=== PATIENT | male | born 1955 | race African-American/Black ===

== ENCOUNTER 2022-09-06 13:32 | Outpatient (CLI) | payer MEDICARE | END 2022-09-06 13:33 | disposition home or self-care (01) | LOC: BICRAD 13:32 | PROVIDERS: ATTEND Physician Assistant Medical | DX: K31.89 Other diseases of stomach and duodenum (principal); R10.10 Upper abdominal pain, unspecified; K76.9 Liver disease, unspecified; R91.1 Solitary pulmonary nodule | CPT/HCPCS: 71046 ==

== ENCOUNTER 2022-10-30 08:48 | Outpatient (CLI) | payer MEDICARE ==
[2022-10-17 08:30] LABS: #Basophils 0.1 thou/uL (0.0-0.2); #Eosinphils 0.4 thou/uL (0.0-0.7); #Lymphocytes 3.4 thou/uL (1.20-3.40); #Neutrophils 5.2 thou/uL (1.40-6.50); %Basophils 0.5 % (0.0-1.0); %Eosinophils 4.1 % (0.0-10.0); %Monocytes 9.7 % (0.0-10.0); %Neutrophils 51.7 % (42.0-75.0); Hemoglobin 12.9 g/dL (14.0-18.0); Mean Corpuscular HGB CONC 32.4 g/dL (32.0-36.0); Mean Corpuscular Hemoglobin 30.2 pg (27.0-31.0); Mean Corpuscular Volume 93.4 fl (78.0-98.0); Mean Platelet Volume 8.6 fL (7.4-10.4); Platelet Count 201 10x3/uL (130-400); RBC Distribution Width 15.2 % (11.5-14.5); Red Blood Cell (RBC) Count 4.28 mill/uL (4.70-6.10); White Blood Cell (WBC) Count 10.1 10x3/uL (4.8-10.8)
[2022-10-17 08:54] LABS: Prothrombin Time 13.6 sec (12.0-14.7)
[2022-10-17 08:55] LABS: PTT 26.3 sec (22.9-36.1)
[2022-10-30] MEDS ORDERED: Iopamidol 370 76% 100 ML VIAL ONE (09:02)
[2022-10-30 10:29] VITALS: BP 125/77; TEMP 97.7
== END 2022-10-30 08:49 | disposition home or self-care (01) ==
LOC: CT 08:48
PROVIDERS: ATTEND Internal Medicine Gastroenterology
DX: R91.8 Other nonspecific abnormal finding of lung field (principal); K76.9 Liver disease, unspecified; R59.0 Localized enlarged lymph nodes; C78.7 Secondary malignant neoplasm of liver and intrahepatic bile duct; S22.32XA Fracture of one rib, left side, initial encounter for closed fracture
CPT/HCPCS: 71260; 82565; 85025; 85610; 85730

== ENCOUNTER 2022-11-06 08:44 | Outpatient (CLI) | payer MEDICARE ==
[2022-11-06 09:40] VITALS: BP 125/70; TEMP 97
== END 2022-11-06 08:45 | disposition home or self-care (01) ==
LOC: CT 08:44
PROVIDERS: ATTEND Internal Medicine Gastroenterology
DX: R91.8 Other nonspecific abnormal finding of lung field (principal); K76.89 Other specified diseases of liver
CPT/HCPCS: 47000; 77012

== ENCOUNTER 2022-12-19 13:36 | Outpatient (CLI) | payer MEDICARE ==
[2022-12-19 15:16] LABS: Hemoglobin 11.9 g/dL (13.5-17.5); Mean Platelet Volume 10.6 fl (7.4-10.4); Platelet Count 198 10x3/uL (150-450); RBC Distribution Width 16.8 % (11.5-14.5); White Blood Cell (WBC) Count 20.8 10x3/uL (3.5-10.5)
[2022-12-19 15:42] LABS: MDiff Complete? YES
[2022-12-19 15:43] LABS: Band 2 % (5-11); Lymphocytes 17 % (21-51); Monocytes 2 % (0-10); Neutrophil 79 % (42-75)
[2022-12-19 15:44] LABS: Platelet Adequacy Comment Appears Adequate; RBC Morph Comment Within Normal Limits
[2022-12-19 15:51] LABS: Anion Gap 15 mmol/L (10-20); BUN (Urea Nitrogen) 18 mg/dL (8.4-25.7); Calc. Creatinine Clearance 0 mL/min (70-130); Carbon Dioxide 23 mmol/L (23-31); Chloride 108 mmol/L (98-107); Estimated GFR 57; Glucose 148 mg/dL (80-115); Potassium 4.3 mmol/L (3.5-5.1); Sodium 142 mmol/L (136-145)
== END 2022-12-19 13:37 | disposition home or self-care (01) ==
LOC: LABBT 13:36
PROVIDERS: ATTEND Specialist
DX: Z01.818 Encounter for other preprocedural examination (principal); C34.90 Malignant neoplasm of unspecified part of unspecified bronchus or lung
CPT/HCPCS: 71046; 80048; 85025; 93005; 93010

== ENCOUNTER 2023-01-30 09:14 | Outpatient (CLI) | payer MEDICARE ==
[2023-01-30] MEDS ORDERED: Iopamidol 370 76% 100 ML VIAL ONE (13:53)
== END 2023-01-30 09:15 | disposition home or self-care (01) ==
LOC: NM 09:14
PROVIDERS: ATTEND Internal Medicine Hematology & Oncology
DX: C34.82 Malignant neoplasm of overlapping sites of left bronchus and lung (principal); R91.1 Solitary pulmonary nodule; R59.0 Localized enlarged lymph nodes; K76.9 Liver disease, unspecified
CPT/HCPCS: 71260; 74177; 78306; A9503; Q9967

== ENCOUNTER 2023-02-14 10:44 | Outpatient (CLI) | payer MEDICARE | END 2023-02-14 10:45 | disposition home or self-care (01) | LOC: RAD 10:44 | PROVIDERS: ATTEND Radiology Radiation Oncology | DX: C79.51 Secondary malignant neoplasm of bone (principal); C34.90 Malignant neoplasm of unspecified part of unspecified bronchus or lung ==

== ENCOUNTER 2023-03-04 11:16 | Outpatient (CLI) | payer MEDICARE ==
[2023-03-04] MEDS ORDERED: Magnevist 469MG/ML 20 ML VIAL ONE (11:21)
== END 2023-03-04 11:17 | disposition home or self-care (01) ==
LOC: MRI 11:16
PROVIDERS: ATTEND Radiology Radiation Oncology
DX: C34.12 Malignant neoplasm of upper lobe, left bronchus or lung (principal)
CPT/HCPCS: 70553; A9579

== ENCOUNTER 2023-05-30 08:26 | Outpatient (CLI) | payer MEDICARE ==
[2023-05-30] MEDS ORDERED: Iopamidol 370 76% 100 ML VIAL ONE (13:31)
== END 2023-05-30 08:27 | disposition home or self-care (01) ==
LOC: CT 08:26
PROVIDERS: ATTEND Internal Medicine Hematology & Oncology
DX: C34.82 Malignant neoplasm of overlapping sites of left bronchus and lung (principal); K76.9 Liver disease, unspecified; J98.4 Other disorders of lung
CPT/HCPCS: 71260; 74177; 78306; 82565; A9503; J1642; Q9967

== ENCOUNTER 2023-06-02 08:25 | Outpatient (CLI) | payer MEDICARE | END 2023-06-02 08:26 | disposition home or self-care (01) | LOC: MRI 08:25 | PROVIDERS: ATTEND Radiology Radiation Oncology | DX: C34.12 Malignant neoplasm of upper lobe, left bronchus or lung (principal) | CPT/HCPCS: 70553 ==

== ENCOUNTER 2023-09-19 09:03 | Outpatient (CLI) | payer MEDICARE ==
[2023-09-19] MEDS ORDERED: Iopamidol 370 76% 100 ML VIAL ONE (12:50)
== END 2023-09-19 09:04 | disposition home or self-care (01) ==
LOC: BICCT 09:03
PROVIDERS: ATTEND Internal Medicine Hematology & Oncology
DX: C34.82 Malignant neoplasm of overlapping sites of left bronchus and lung (principal); K76.9 Liver disease, unspecified; J98.4 Other disorders of lung
CPT/HCPCS: 71260; 74177; 82565; Q9967

== ENCOUNTER 2024-03-23 08:29 | Outpatient (CLI) | payer MEDICARE ==
[2024-03-23] MEDS ORDERED: Iopamidol 370 76% 100 ML VIAL ONE (10:39)
== END 2024-03-23 08:30 | disposition home or self-care (01) ==
LOC: CT 08:29
PROVIDERS: ATTEND Internal Medicine Hematology & Oncology
DX: C34.82 Malignant neoplasm of overlapping sites of left bronchus and lung (principal); K76.9 Liver disease, unspecified
CPT/HCPCS: 36415; 71260; 74177; 78306; 82565; A9503; J1642

== ENCOUNTER 2024-06-03 09:53 | Outpatient (CLI) | payer MEDICARE | END 2024-06-03 09:54 | disposition home or self-care (01) | LOC: MRI 09:53 | PROVIDERS: ATTEND Radiology Radiation Oncology | DX: C79.31 Secondary malignant neoplasm of brain (principal); C34.12 Malignant neoplasm of upper lobe, left bronchus or lung | CPT/HCPCS: 70553; 76376 ==

== ENCOUNTER 2024-06-29 07:57 | Outpatient (CLI) | payer MEDICARE | END 2024-06-29 07:58 | disposition home or self-care (01) | LOC: NM 07:57 | PROVIDERS: ATTEND Internal Medicine Hematology & Oncology | DX: C34.82 Malignant neoplasm of overlapping sites of left bronchus and lung (principal); K76.89 Other specified diseases of liver | CPT/HCPCS: 71260; 74177; 78306; A9503 ==

== ENCOUNTER 2025-03-14 08:22 | Outpatient (CLI) | payer MEDICARE ==
[2025-03-14 09:00] LABS: Estimated GFR - POC 65.0
[2025-03-14] MEDS ORDERED: Iopamidol 370 76% 100 ML VIAL ONE (12:50)
== END 2025-03-14 08:23 | disposition home or self-care (01) ==
LOC: CT 08:22
PROVIDERS: ATTEND Internal Medicine Hematology & Oncology
DX: C34.82 Malignant neoplasm of overlapping sites of left bronchus and lung (principal); J98.4 Other disorders of lung; I25.10 Atherosclerotic heart disease of native coronary artery without angina pectoris; I70.90 Unspecified atherosclerosis; K76.89 Other specified diseases of liver; D17.79 Benign lipomatous neoplasm of other sites; N28.1 Cyst of kidney, acquired; K40.20 Bilateral inguinal hernia, without obstruction or gangrene, not specified as recurrent; K42.9 Umbilical hernia without obstruction or gangrene; M47.819 Spondylosis without myelopathy or radiculopathy, site unspecified; M16.0 Bilateral primary osteoarthritis of hip
CPT/HCPCS: 36415; 71260; 74177; 78306; 82565 ×2; A9503; Q9967

== ENCOUNTER 2025-04-13 10:32 | Outpatient (CLI) | payer MEDICARE | END 2025-04-13 10:33 | disposition home or self-care (01) | LOC: MRI 10:32 | PROVIDERS: ATTEND Radiology Radiation Oncology | DX: C79.31 Secondary malignant neoplasm of brain (principal); I73.9 Peripheral vascular disease, unspecified; I67.82 Cerebral ischemia | CPT/HCPCS: 70553; 76376 ==